=== PATIENT | male | born 1995 | race Caucasian/White ===

== ENCOUNTER 2017-01-19 13:30 | Emergency (ER) | payer SELFPAY ==
[~2017-01-19] VITALS: Ht 182.9 cm; Wt 79.4 kg
[2017-01-19 13:38] VITALS: BP 133/85
== END 2017-01-19 14:30 | disposition home or self-care (01) ==
LOC: ER 13:32
DX: R41.82 Altered mental status, unspecified (principal)
CPT/HCPCS: 99283; A4606; Z7610